=== PATIENT | male | born 1965 | race Caucasian/White ===

== ENCOUNTER → 2017-01-08 | Outpatient (CLI) | payer OTHER ==
[~2017-01-08] MED LIST: CTP/1 PO; LISI10TA PO; OXYC-106 PO; RANITAB33 PO
== END | disposition home or self-care (01) ==
LOC: C.LAB 03:37
DX: Z02.83 Encounter for blood-alcohol and blood-drug test (principal)

== ENCOUNTER → 2017-07-10 | Outpatient (CLI) | payer OTHER | END | disposition home or self-care (01) | LOC: C.LAB 23:31 | DX: Z02.83 Encounter for blood-alcohol and blood-drug test (principal) ==